=== PATIENT | male | born 1990 | race Two or more races ===

== ENCOUNTER → 2019-12-03 | Outpatient (CLI) | payer OTHER ==
[2015-08-26 00:26] VITALS: BP 135/70
--- NOTE | 2019-12-03 14:51 | PAIN ---
DATE OF SERVICE: 12/03/2019 INITIAL CONSULTATION FOR PAIN CLINIC CHIEF COMPLAINT: Neck and right upper extremity pain. HISTORY OF PRESENT ILLNESS: This is a 29-year-old male who presents with history of pain since 05/01/2018. The patient was at work, lifting and dropping wood pallets when he went to drop one to his right side, his hand stuck on the pallet and it pulled him to his right side and forward, dragging him with the pallet forward. The patient reports he has had significant pain in the neck and shoulder as well as the arm since that time with numbness and tingling, it is becoming more constant and sharp. He did go through some physical therapy through his worker's compensation program, also saw an orthopedist, had an MRI of his right shoulder, which was reportedly normal, had two intra-articular injections in the shoulder, he believes, which were not helpful as well and he was told there was nothing else that could be done. The patient does not have any pain in the left side, does not have any pain prior to the accident, but does have significant pain in the right arm and shoulder, base of the neck on the right side radiating into the forearm, both anteriorly and posteriorly into the wrist with occasional pain in the hand, but generally the hand is somewhat spared. The patient reports it has been constant, sharp with numbness and tingling in the arm with any repetitive motions, weight lifting, repetitive motions, holding his child. He is able to use his left hand to compensate. The patient reports it awakens him from sleep at least 2-3 times a night, does not affect his bowel or bladder control or his ability to walk. He is still working despite the pain, but is in a less of a physical demanding job with his employer by his report. The patient has tried a steroid injection in the right shoulder as well as trigger point injections, physical therapy and exercise, none of which have decreased the pain by his report. The patient rates his disability rating from 0-10, 10 being the worst, is an 8-9 with family and home responsibilities, 8 with recreation, occupation, self-care and life support activities, 7 with social activity, 5 with sexual behavior. The patient did have an MRI scan of the cervical spine dated 08/30/2019 showing only some central disk osteophyte complex at C5-C6 with mild effacement of ventral thecal sac. Neural foraminal and facet joints unremarkable. Other levels appear normal on the MRI scan as well. The patient reports some fatigability in the right upper extremity. No overt weakness, but does fatigue much more easily and again he has been favoring the right arm by using his left arm more frequently. PAST MEDICAL HISTORY: Significant for no major medical problems or conditions he is aware of. PREVIOUS SURGERY: No previous surgeries. ALLERGIES: The patient has no known drug allergies. CURRENT MEDICATIONS: Just [id number] ibuprofen and Tylenol, which does decrease the pain, but only by about 10-20%. FAMILY HISTORY: Significant for no major medical problems or conditions that he lists. SOCIAL HISTORY: The patient does not drink alcohol, does not smoke. Denies any illegal, illicit or recreational drugs. He is , lives with his spouse, has one child, living at home and continues to work. REVIEW OF SYSTEMS: The patient's review of systems is positive for those items mentioned in history of present illness. All systems reviewed and otherwise negative. It is complete, full and well documented on the patient's chart. PHYSICAL EXAMINATION: VITAL SIGNS: The patient's blood pressure is 133/87, pulse 67, respirations 18, temperature 98.1 degrees Fahrenheit, height is 5 feet 2 inches, weighs 171 pounds. GENERAL: The patient is awake, alert, oriented, appropriate, very pleasant demeanor. HEENT: Exam shows normocephalic, atraumatic. Extraocular movements are intact and symmetrical. Oral cavity shows mucous membranes moist and pink. Dentition is intact. NECK: Shows anterior throat supple without palpable lymphadenopathy noted. Swallow reflex symmetrical. CHEST: Shows normal on inspection. Breath sounds clear to auscultation bilaterally. HEART: Shows S1, S2 clear. No murmurs auscultated. ABDOMEN: Soft, nontender, nondistended. No palpable organomegaly is noted. There is no rebound or guarding demonstrated. BACK: Shows spine grossly in the midline, normal-appearing cervical lordotic curvature, thoracic kyphotic curvature and lumbar lordotic curvature. Cervical paraspinous muscle shows symmetrical on inspection, on palpation shows some mild tenderness diffusely bilaterally in the superior cervical paraspinous musculature, more significant tenderness in the lower cervical distribution on the right side compared to the left, as well as into the superior medial trapezius on the right side with some more firm musculature compared to the left, but much more tender with palpation. Some minor tenderness on the left as well, but mostly on the right in the trapezius musculature in the inferior cervical paraspinous. EXTREMITIES: The patient's upper extremities show deep tendon reflexes at 2+ in the biceps and triceps tendons. Motor exam is approximately 4 on a scale of 5 on the right with mat machine tender strength, bicep and tricep flexion 5/5 on the left. Peripheral pulses are 2+ radial. No peripheral edema is noted. Shoulder shrug is strong and intact, but with some moderate pain with resistance on the right side, but not the left. This is true with abduction of shoulder to 90 degrees. Moderate pain with resistance on the right, but not the left. Again, no loss of strength on resistance. The patient's neck shows full rotational motion past 45 degrees right and left, full extension, full forward flexion without significant increase in pain. EXTREMITIES: Upper extremities are warm and dry to touch, equal in color and appearance. SKIN: Shows warm and dry, good turgor. No edema. No sores, rashes or bruising throughout. IMPRESSION: 1. This is a 29-year-old male status post work-related injury on 05/01/2018 with a significant radiculopathy symptoms in the right upper extremity following a C5-C6 dermatomal distribution. 2. MRI scan of cervical spine as noted. 3. status post physical therapies continue with exercise as well as [id number] analgesics and anti-inflammatories without significant improvement. PLAN: Options were discussed with the patient including conservative medical management, physical therapy, interventional techniques. He would like to pursue interventional techniques as he has done physical therapy and is taking oral medications without significant improvement. We discussed a cervical epidural steroid injection using description as well as anatomical models to describe the procedure. Wait for preauthorization with his insurance provider and proceed at that time for translaminar injection at C5-C6 level for his C5-C6 radiculopathy on the right arm. In the meantime, we will try Medrol Dosepak. The patient was given a prescription with side effects and instructions discussed as well. We will follow up as scheduled for cervical epidural steroid injection. LESLY ORLANDO MD DR: ERNESTO/aisha JOB#: [id number] / [id number] DELMAR Drake PA-C
== END | disposition home or self-care (01) ==
LOC: PNCL 10:30
PROVIDERS: ATTEND Anesthesiology
DX: M54.12 Radiculopathy, cervical region (principal); R29.2 Abnormal reflex; R29.898 Other symptoms and signs involving the musculoskeletal system; M79.641 Pain in right hand
CPT/HCPCS: G0463-25

== ENCOUNTER → 2019-12-18 | Outpatient (CLI) | payer OTHER ==
[2015-08-26 00:26] VITALS: BP 135/70
[~2019-12-18] MED LIST: IOHEXOL 180 MG/ML 10 ML VIAL. ONE; methylPREDNISolone ACETATE 40 MG/ML VIAL. ONE; methylPREDNISolone ACETATE 80 MG/ML VIAL. ONE
--- NOTE | 2019-12-18 19:38 | PAIN ---
DATE OF SERVICE: 12/18/2019 PROGRESS NOTE FOR PAIN CLINIC DIAGNOSES: Cervical radiculopathy with cervical degenerative disk disease. HISTORY OF PRESENT ILLNESS: The patient is a 29-year-old male who returns for followup status post initial evaluation and preauthorization for cervical epidural steroid injection. The patient has obtained this now and would like to proceed. He reports still significant pain in the base of the neck, right upper extremity as it was previously. No new motor or sensory deficits, no new changes, but significant pain with activity, reaching and weightbearing. The patient rates it as a 7 on a scale of 10 at its worst over the past week, 5 on average and a 2 at its least and is a 3 today. The patient reports it is tingling, burning, radiating, becoming more constant in the right arm. The patient reports no loss of motor function completely, but significant fatigability with the right arm. PHYSICAL EXAMINATION: VITAL SIGNS: The patient's blood pressure 119/80, pulse 73, respirations 16, temperature is 98.1 degrees Fahrenheit, height is 5 feet 2 inches, weight is 170 pounds. GENERAL: The patient is awake, alert, oriented, appropriate, very pleasant demeanor. HEENT: Shows normocephalic, atraumatic. Extraocular movements are intact and symmetrical. Oral cavity, mucous membranes moist and pink. Dentition is intact. NECK: Shows anterior throat is supple without palpable lymphadenopathy noted. Swallow reflex symmetrical. CHEST: Shows normal on inspection. Breath sounds are clear bilaterally. HEART: Shows S1, S2 clear. No murmurs auscultated. ABDOMEN: Soft, nontender, nondistended. No palpable organomegaly is noted. No rebound or guarding demonstrated. BACK: Shows spine grossly in the midline. Normal appearing thoracic kyphosis and lumbar lordotic curvature. Lumbar paraspinous muscle shows symmetrical on inspection, on palpation shows some moderate tenderness diffusely bilaterally. Cervical paraspinous muscle shows symmetrical on inspection with some moderate tenderness bilaterally, but only diffusely without significant radiation. The patient has good rotational motion of cervical spine with some minor tenderness with extension, but not with forward flexion, right lateral rotation is mildly tender in the base of the neck as well. EXTREMITIES: The patient's upper extremities show deep tendon reflexes at 2+ in the biceps and triceps tendons. Motor exam is approximately 4 on a scale of 5 with right dorsiflexion and then with laboratory animal facility supervisor strength, bicep and tricep flexion 5/5 on the left. Peripheral pulses are 2+ radial. No peripheral edema is noted bilaterally. Options were discussed with the patient. The patient's old chart was reviewed as his current medication regimen updated. Current review of systems updated today as well and we will proceed with a cervical epidural steroid injection today with fluoroscopic guidance. Risks were again discussed including, but not limited to bleeding, infection, possibility of epidural hematoma, subsequent neurological compromise, dural puncture, headaches, spinal cord and/or nerve damage, side effects of steroid medication and poor results regarding pain control. The patient understands and wished to proceed. The patient will return to the clinic in approximately 2 weeks for followup. He was counseled on return appointment, activity level and side effects to be aware of. DIAGNOSES: Cervical radiculopathy with cervical degenerative disk disease. PROCEDURE: Cervical epidural steroid injection, translaminar approach C6-C7 level using C-arm fluoroscopic guidance under sterile prep and drape using local anesthetic. MEDICATION INJECTED: A total of 120 mg of Depo-Medrol plus 5 mL of preservative-free normal saline and 2 mL of contrast. CONDITION AT DISCHARGE: Stable. The patient tolerated procedure well, had no complications. LESLY ORLANDO MD DR: ERNESTO/aisha JOB#: [id number] / [id number]
== END ==
LOC: PNCL 09:55
PROVIDERS: ATTEND Anesthesiology
DX: M50.123 Cervical disc disorder at C6-C7 level with radiculopathy (principal)
CPT/HCPCS: 62321; J1030; J1040; Q9965

== ENCOUNTER → 2020-01-01 | Outpatient (CLI) | payer OTHER ==
[2015-08-26 00:26] VITALS: BP 135/70
--- NOTE | 2020-01-01 12:25 | PAIN ---
DATE OF SERVICE: 01/01/2020 PROGRESS NOTE FOR PAIN CLINIC DIAGNOSIS: Cervical radiculopathy with cervical degenerative disk disease. HISTORY OF PRESENT ILLNESS: The patient is a 29-year-old male, who returns for followup status post cervical epidural steroid injection x 1. The patient reports about 50-60% improvement in his right arm, but still pain in the right shoulder and base of the neck. The patient reports his arm is doing much better, feels more normal, has increased strength and mobility, but the shoulder and the base of the neck is becoming more noticeable. The patient reports it is a 9 on a scale of 10 at its worst in the past week, 9 on an average and a 6 at its least and is a 9 today. The patient reports it is aching, sharp and tight, not as much radiation to the right upper extremity as it was prior to the injection, but it is still significant in the shoulder itself. The patient reports it is worse with repetitive motions, reaching over his head with his right arm, weightlifting items, reaching forward with weightbearing activities and repetitive motions with the right arm. The patient reports it does not awaken him from sleep at night, generally he sleeps about 8 hours at a time without interruption from the pain. The patient reports initially he was doing much better with work activities, household activities. Now, the pain is beginning to return in the shoulder, but not as much in the arm as noted. The patient reports no new motor or sensory deficits, no new changes. PHYSICAL EXAMINATION: VITAL SIGNS: The patient's blood pressure is 126/84, pulse 74, respirations are 12, temperature 98.1 degrees Fahrenheit, height is 5 feet 2 inches, weighs 170 pounds. GENERAL: The patient is awake, alert, oriented, appropriate, very pleasant demeanor. HEENT: Shows normocephalic, atraumatic. Extraocular movements are intact and symmetrical. Oral cavity: Mucous membranes moist and pink; dentition is intact. NECK: Shows anterior throat supple without palpable lymphadenopathy noted. Swallow reflex symmetrical. CHEST: Shows normal on inspection. Breath sounds are clear bilaterally. HEART: Shows S1, S2 clear. No murmurs auscultated. ABDOMEN: Soft, nontender, nondistended. No palpable organomegaly is noted. There is no rebound or guarding demonstrated. BACK: Shows spine grossly in the midline. Cervical lordotic curvature shows normal in appearance as is the thoracic kyphotic curvature. Cervical paraspinous musculature shows symmetrical on inspection, on palpation shows some moderate tenderness diffusely bilaterally, but only diffusely without significant radiation. The patient has good rotational motion of the cervical spine, both laterally, greater than 45 degrees right and left closer to 90 degrees without significant increase in difficulty. Full extension and full forward flexion without pain reported. EXTREMITIES: The patient's upper extremities show deep tendon reflexes are 2+ in the biceps and triceps tendons. Motor exam is 4 on a scale of 5 on the right with parking technician strength, biceps and triceps flexion and 5/5 on the left, but intact. Shoulder shrug strong and intact, but with moderate pain with resistance on the right side without loss of strength on resistance in the shoulder and radiating into the anterior biceps as well on the right only, not on the left. Peripheral pulses are 2+ radial. No peripheral edema is noted bilaterally. Options were discussed with the patient. The patient's old chart was reviewed as his current medication regimen updated. Current review of systems updated today as well. We will preauthorize the patient for a second cervical epidural steroid injection. He did very well for the first few weeks with about 50% improvement overall, again arm much better than the shoulder, shoulder has still significant pain in a radicular fashion at C5-C6 dermatomal distribution. The patient will continue with stretching and strength exercises, rotational motion and will follow up after preauthorization. We will plan on translaminar C5-C6 cervical epidural steroid injection at that time. LESLY ORLANDO MD DR: ERNESTO/aisha JOB#: [id number] / [id number]
== END | disposition home or self-care (01) ==
LOC: PNCL 10:30
PROVIDERS: ATTEND Anesthesiology
DX: M50.122 Cervical disc disorder at C5-C6 level with radiculopathy (principal)
CPT/HCPCS: G0463

== ENCOUNTER → 2020-01-11 | Outpatient (CLI) | payer OTHER ==
[2015-08-26 00:26] VITALS: BP 135/70
[~2020-01-11] MED LIST changes: +DENIES
--- NOTE | 2020-01-11 11:11 | PAIN ---
DATE OF SERVICE: 01/11/2020 PROGRESS NOTE FOR PAIN CLINIC: DIAGNOSIS: Cervical radiculopathy with cervical degenerative disk disease. HISTORY OF PRESENT ILLNESS: The patient is a 29-year-old male who returns for followup status post cervical epidural steroid injection x 1 with about 50-60% improvement, he is waiting preauthorization for his second injection. He has achieved that now and would like to proceed. The patient reports still pain in the base of neck and right shoulder and upper extremity in a radicular fashion. The patient reports it is sharp pain, is tight in the arm and shoulder and neck on the right side radiating to the right upper extremity. The patient had an EMG done about 2 weeks ago, which showed just some cubital tunnel impingement mild, otherwise it was unremarkable. The patient rates his pain as a 4 on a scale of 10 at its worst in the past week, 3 on average, 1 at its least and is a 3 today. The patient reports it is becoming more tolerable over time, but still significant pain and radiating pain in the right upper extremity and neck. The patient reports no new motor or sensory deficits. Reports it does not awaken him from sleep at night, worse with activity, reaching over his head with his right hand, repetitive motions or weightbearing and lifting, even driving the car with his right hand can be uncomfortable. The patient reports no new deficits. PHYSICAL EXAMINATION: VITAL SIGNS: The patient's blood pressure 119/85, pulse 72, respirations 16, temperature 98.5 degrees Fahrenheit, height is 5 feet 2 inches, weight is 171 pounds. GENERAL: The patient is awake, alert, oriented, appropriate, very pleasant demeanor. HEENT: Shows normocephalic, atraumatic. Extraocular movements are intact and symmetrical. Oral cavity shows mucous membranes moist and pink. Dentition is intact. NECK: Shows anterior throat supple without palpable lymphadenopathy noted. Swallow reflex symmetrical. CHEST: Shows normal on inspection. Breath sounds are clear. No rales, rhonchi or wheezes auscultated. HEART: Shows S1, S2 clear. No murmurs auscultated. ABDOMEN: Soft, nontender, nondistended. No palpable organomegaly is noted. No rebound or guarding demonstrated. BACK: Shows spine grossly in the midline, normal-appearing cervical lordotic curvature and thoracic kyphotic curvature. Cervical paraspinous muscle shows symmetrical on inspection, with palpation shows some moderate tenderness diffusely bilaterally, but only diffusely without significant radiation. The patient shows good rotational motion of cervical spine, both laterally greater than 45 degrees closer to 90 degrees, right and left without significant increase in pain. Full extension, full forward flexion without significant pain as well. EXTREMITIES: The patient's upper extremities show deep tendon reflexes at 2+ in the biceps and triceps tendons. Motor exam is strong with approximately 4 on a scale of 5 on the right with director zone strength and 5/5 on the left. Bicep and tricep flexion, however, is 5/5 bilaterally. Peripheral pulses are 2+ radial. No peripheral edema is noted. Upper extremities are warm and dry to touch, equal in color and appearance. Shoulder shrug is strong and intact without loss of strength on resistance. Options were discussed with the patient. The patient's old chart was reviewed as his current medication regimen updated. Current review of systems updated today as well and we will proceed with a second in a series of cervical epidural steroid injection today with fluoroscopic guidance. Risks were again discussed including, but not limited to bleeding, infection, possibility of epidural hematoma, subsequent neurological compromise, dural puncture, headaches, spinal cord and/or nerve damage, side effects of steroid medication and poor results regarding pain control. The patient understands and wished to proceed. The patient will return to clinic in approximately 2 weeks for followup. He was counseled on return appointment, activity level and side effects to be aware of. DIAGNOSIS: Cervical radiculopathy with cervical degenerative disk disease. PROCEDURE: Cervical epidural steroid injection, translaminar approach at the C6-C7 level using C-arm fluoroscopic guidance under sterile prep and drape using local anesthetic. MEDICATION INJECTED: A total of 120 mg Depo-Medrol plus 5 mL of preservative-free normal saline and 2 mL of contrast. CONDITION AT DISCHARGE: Stable. The patient tolerated procedure well, had no complications. LESLY ORLANDO MD DR: ERNESTO/aisha JOB#: [id number] / [id number]
== END | disposition home or self-care (01) ==
LOC: PNCL 09:46
PROVIDERS: ATTEND Anesthesiology
DX: M50.123 Cervical disc disorder at C6-C7 level with radiculopathy (principal); Z98.890 Other specified postprocedural states
CPT/HCPCS: 62321; J1030; J1040; Q9965

== ENCOUNTER → 2020-02-04 | Outpatient (CLI) | payer OTHER ==
[2015-08-26 00:26] VITALS: BP 135/70
[~2020-02-04] MED LIST changes: -IOHEXOL 180 MG/ML 10 ML VIAL. ONE; -methylPREDNISolone ACETATE 40 MG/ML VIAL. ONE; -methylPREDNISolone ACETATE 80 MG/ML VIAL. ONE
--- NOTE | 2020-02-04 10:54 | PAIN ---
DATE OF SERVICE: 02/04/2020 DIAGNOSES: Cervical radiculopathy with cervical degenerative disk disease. HISTORY OF PRESENT ILLNESS: The patient is a 29-year-old male who returns for followup status post cervical epidural steroid injections x 2. The patient reports initially it was pretty well about 60-65% improvement for the first 2 weeks or so, but then the pain returns in the base of neck and right shoulder, right upper extremity, into the right hand and into the thumb and first finger. The patient reports it is a 9 on a scale of 10 at its worst over the past week, 8 on average, 5 at its least and is a 5 today that is worse with activity, reaching, lifting items, especially when he is holding one of his children in his right arm, he feels increased fatigue and weakness in the right arm, also some numbness and tingling, sharp pain in the base of the shoulder and tight in the base of the neck and shoulder as well on the right side. The patient reports no new motor or sensory deficits. No new changes. It awakens him from sleep about every 6 hours if he lies on his right side and if he is raising his hand up over his head or doing repetitive motions or weightbearing with the right upper extremity. PHYSICAL EXAMINATION: VITAL SIGNS: The patient's blood pressure is 119/83, pulse 73, respirations 18, temperature 98.7 degrees Fahrenheit. Height is 5 feet 2 inches, weight is 169 pounds. GENERAL: The patient is awake, alert, oriented, appropriate, very pleasant demeanor. HEENT: Shows normocephalic, atraumatic. Extraocular movements are intact and symmetrical. Oral cavity: Mucous membranes are moist and pink. Dentition is intact. NECK: Shows anterior throat supple without palpable lymphadenopathy noted. Swallow reflex symmetrical. CHEST: Shows normal on inspection. Breath sounds are clear bilaterally. No rales, rhonchi or wheezes auscultated. ABDOMEN: Soft, nontender, nondistended. BACK: Shows spine grossly in the midline. Cervical lordotic curvature is normal in appearance as his thoracic kyphotic curvature. Cervical paraspinous muscle shows symmetrical on inspection, on palpation shows some moderate tenderness diffusely bilaterally, but only diffusely without significant radiation. There is some moderate tenderness on the right greater than the left in the superior medial trapezius with very firm rope-like musculature as well with tenderness on palpation, but without significant radiation. EXTREMITIES: The patient's upper extremities show deep tendon reflexes 2+ in the biceps and triceps tendons. Motor exam is strong with approximately 4 on a scale of 5 with right reliability manager strength 5/5 on the left. Peripheral pulses are 2+ radial. No peripheral edema bilaterally. Shoulder shrug is strong and intact without loss of strength bilaterally. Options were discussed with the patient. The patient's old chart was reviewed as his current medication regimen updated. Current review of systems updated today as well. We will proceed with preauthorization for a third in the series of cervical epidural steroid injection. The patient did very well for a few weeks after the injection, but the pain returning in a radicular fashion in a C6-C7 dermatomal distribution on the right. We will plan on translaminar approach at C6-C7 level. Once approval has been made, in the meantime we will continue with stretching and strengthening exercises, heat application as well to the areas of increased muscular pain on the right and left trapezius as discussed. LESLY ORLANDO MD DR: ERNESTO/aisha JOB#: [id number] / [id number]
== END | disposition home or self-care (01) ==
LOC: PNCL 09:16
PROVIDERS: ATTEND Anesthesiology
DX: M51.16 Intervertebral disc disorders with radiculopathy, lumbar region (principal); M43.8X2 Other specified deforming dorsopathies, cervical region
CPT/HCPCS: G0463

== ENCOUNTER → 2020-02-13 | Outpatient (CLI) | payer OTHER ==
[2015-08-26 00:26] VITALS: BP 135/70
[~2020-02-13] MED LIST changes: +IOHEXOL 180 MG/ML 10 ML VIAL. ONE; +methylPREDNISolone ACETATE 40 MG/ML VIAL. ONE; +methylPREDNISolone ACETATE 80 MG/ML VIAL. ONE
--- NOTE | 2020-02-13 11:02 | PAIN ---
DATE OF SERVICE: 02/13/2020 PROGRESS NOTE FOR PAIN CLINIC DIAGNOSIS: Cervical radiculopathy with cervical degenerative disk disease. HISTORY OF PRESENT ILLNESS: The patient is a 29-year-old male who returns for followup status post cervical epidural steroid injections x 2. The patient reports about 65% improvement for the first 2 weeks after his last injection with pain returning in his right upper extremity as it had been. The patient reports it is 7-8 on a scale of 10 on average, as 8 at its worst and a 6 at its least and is at 7 today. The patient reports it is sharp and tight, radiating to the right upper extremity, base of the neck and shoulder, right posterior arm triceps, into the forearm as well and with pain in the right hand and wrist. The patient reports no new motor or sensory deficits. Initially, he is doing better with doing household activities, work activities, has been beginning to awaken him from sleep again about every 6-7 hours. The patient reports no new motor or sensory deficits or other complaints. PHYSICAL EXAMINATION: VITAL SIGNS: The patient's blood pressure is 122/82, pulse is 64, respirations 16, temperature is 97.9 degrees Fahrenheit, height is 5 feet 2 inches, weight is 169 pounds. GENERAL: The patient is awake, alert, oriented, appropriate, very pleasant demeanor. HEENT: Shows normocephalic, atraumatic. Extraocular movements are intact and symmetrical. Oral cavity: Mucous membranes moist and pink. Dentition is intact. NECK: Shows anterior throat supple without palpable lymphadenopathy noted. Swallow reflex symmetrical. CHEST: Shows normal on inspection. Breath sounds are clear bilaterally. No rales, rhonchi or wheezes auscultated. HEART: Shows S1, S2 clear. ABDOMEN: Soft, nontender, nondistended. BACK: Shows spine grossly in the midline. Cervical paraspinous muscle shows symmetrical on inspection with normal cervical lordotic curvature, with palpation shows some moderate tenderness diffusely inferiorly in the superior medial trapezius on the right, but not the left as well as in the inferior cervical paraspinous musculature, worse on the right than the left, but without significant radiation or trigger points. The patient has good rotational motion of cervical spine, both laterally greater than 45 degrees, closer to 90 degrees right and left as well as full extension, full forward flexion without significant impairment or pain reported. EXTREMITIES: The patient's upper extremities show deep tendon reflexes at 2+ in the biceps and triceps tendons. Motor exam is approximately 4 on a scale of 5 right with trade show specialist strength, 5/5 on the left. Peripheral pulses are 2+ radial. No peripheral edema is noted. Options were discussed with the patient. The patient's old chart was reviewed as his current medication regimen updated. Current review of systems updated today as well and we will proceed with the third in the series of cervical epidural steroid injection today with fluoroscopic guidance. Risks were again discussed including, but not limited to bleeding, infection, possibility of epidural hematoma, subsequent neurological compromise, dural puncture, headaches, spinal cord and/or nerve damage, side effects of steroid medication and poor results regarding pain control. The patient understands and wished to proceed. The patient will return to the clinic in approximately 2 weeks for followup. He was counseled on return appointment, activity level and side effects to be aware of. DIAGNOSES: Cervical radiculopathy with cervical degenerative disk disease. PROCEDURE: Cervical epidural steroid injection C6-C7 level using C-arm fluoroscopic guidance under sterile prep and drape using local anesthetic. MEDICATION INJECTED: A total of 120 mg Depo-Medrol plus 5 mL of preservative-free normal saline and 2 mL of contrast. CONDITION AT DISCHARGE: Stable. The patient tolerated the procedure well, had no complications. LESLY ORLANDO MD DR: ERNESTO/aisha JOB#: [id number] / [id number]
== END | disposition home or self-care (01) ==
LOC: PNCL 09:14
PROVIDERS: ATTEND Anesthesiology
DX: M50.123 Cervical disc disorder at C6-C7 level with radiculopathy (principal)
CPT/HCPCS: 62321; J1030; J1040; Q9965